=== PATIENT | female | born 1965 | race Caucasian/White ===

== ENCOUNTER → 2017-05-19 | Outpatient (CLI) | payer BC ==
--- NOTE | 2017-05-20 14:01 | MM ---
Reason for exam: screening (asymptomatic). Last mammogram was performed 1 year and 11 months ago. History: Patient is postmenopausal. Family history of premenopausal breast cancer in sister. Benign excisional biopsy of the right breast, 2003. Physical Findings: A clinical breast exam by your physician is recommended on an annual basis and results should be correlated with mammographic findings. MG Screening Mammo w CAD Bilateral CC and MLO view(s) were taken. Prior study comparison: June 25, 2015, bilateral MG screening mammo w CAD. April 11, 2009, bilateral digital screening mammogram. The breast tissue is heterogeneously dense. This may lower the sensitivity of mammography. No significant changes when compared with prior studies. ASSESSMENT: Benign, BI-RAD 2 RECOMMENDATION: Routine screening mammogram of both breasts in 1 year.
== END | disposition home or self-care (01) ==
LOC: RADMAMWWP 08:11
PROVIDERS: ATTEND Family Medicine
DX: Z12.31 Encounter for screening mammogram for malignant neoplasm of breast (principal)

== ENCOUNTER → 2020-11-06 | Outpatient (CLI) | payer BC | END | disposition home or self-care (01) | LOC: LABWHC1 09:04 | PROVIDERS: ATTEND Family Medicine | DX: Z20.822 Contact with and (suspected) exposure to COVID-19 (principal) | CPT/HCPCS: U0003; C9803; U0005 ==

== ENCOUNTER 2021-12-10 17:30 | Emergency (ER) | payer BC, OTHER ==
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
[2021-12-10 18:13] LABS: HCT 43.5 % (34.0-46.0); MCHC 32.2 g/dL (31.0-37.0); MCV 96.2 fL (80.0-100.0); Mean Platelet Volume 7.1; Platelet Count 302 k/uL (150-450); RBC 4.52 m/uL (3.80-5.40); RDW 11.9 % (11.5-15.5)
--- NOTE | 2021-12-10 18:14 | XR ---
EXAMINATION TYPE: XR pelvis AP view DATE OF EXAM: 12/10/2021 COMPARISON: NONE HISTORY: Pain TECHNIQUE: Single view FINDINGS: The pelvic ring is intact. Proximal femurs are intact. Sacroiliac joints are intact. IMPRESSION: Negative pelvis xray exam. No fracture
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
[2021-12-10 18:29] LABS: ALT 87 U/L (4-34); AST 152 U/L (14-36); African American GFR (CKD) >90 (>60 ml/min/1.73 sqM); Albumin 4.7 g/dL (3.5-5.0); Alcohol <10 mg/dL; Alkaline Phosphatase 65 U/L (38-126); Anion Gap 7 mmol/L; Blood Urea Nitrogen 26 mg/dL (7-17); Calcium 9.2 mg/dL (8.4-10.2); Carbon Dioxide 26 mmol/L (22-30); Chloride 102 mmol/L (98-107); Glucose 105 mg/dL (74-99); Non-African American GFR(CKD) >90 (>60 ml/min/1.73 sqM); Sodium 135 mmol/L (137-145); Total Bilirubin 1.4 mg/dL (0.2-1.3); Total Protein 7.4 g/dL (6.3-8.2)
[2021-12-10 18:34] LABS: INR 0.9 (<1.2)
[2021-12-10 18:36] LABS: Partial Thromboplastin Time 20.2 sec (22.0-30.0)
[2021-12-10 18:52] LABS: Band Neutrophils % 1 %; Basophils # (M) 0.21 k/uL (0-0.2); Eosinophils # (M) 0.21 k/uL (0-0.7); Lymphocytes # (M) 6.93 k/uL (1.0-4.8); Monocytes # (M) 0.84 k/uL (0-1.0); Myelocytes # (M) 0.21 k/uL (0); Myelocytes % 1 %; Neutrophils % (M) 62 %; Nucleated Red Blood Cells 0 /100 WBC (0-0); Total Cells Counted 200
[2021-12-10 18:53] LABS: RBC Morphology Normal
[2021-12-10 19:00] VITALS: BP 100/68; PULSE 60; RESP 16; TEMP 97.8
[2021-12-10] MEDS ORDERED: ETOMIDATE 2 MG/ML 10 ML VIAL IVP STA (19:09)
[2021-12-10] MEDS ORDERED: HYDROmorphone 0.5 MG/0.5 ML SYRINGE IVP STA ×2 (19:09→20:13)
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
[2021-12-10] MEDS ORDERED: cefTRIAXone IN SWFI 1,000 MG/10 ML SYRINGE IVP STA (20:01)
[2021-12-10] MEDS: cefTRIAXone IN SWFI 1,000 MG/10 ML SYRINGE IVP SCH ×2 (20:09→20:11)
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
== END 2021-12-10 20:13 | disposition other institution (70) ==
LOC: EC 17:30
DX: S93.04XA Dislocation of right ankle joint, initial encounter (principal); S12.600A Unspecified displaced fracture of seventh cervical vertebra, initial encounter for closed fracture; S22.009A Unspecified fracture of unspecified thoracic vertebra, initial encounter for closed fracture; V89.2XXA Person injured in unspecified motor-vehicle accident, traffic, initial encounter; Y92.410 Unspecified street and highway as the place of occurrence of the external cause
CPT/HCPCS: 99291; 96374; 96376; 96375; 36415; 93005; 86900; 86901; 80053; 84484; 85025; 85610; 85730; 86850; 87040; 80320; 72170; 73600; 73610; 71045; 72125; 70450; 71260; 74177; J0696; J1170; Q9967

== ENCOUNTER → 2022-04-09 | Outpatient (CLI) | payer BC ==
--- NOTE | 2022-04-09 15:54 | MM ---
Reason for Exam: Screening (asymptomatic). Last mammogram was performed 4 year(s) and 11 month(s) ago. Patient History: Menarche at age 13. First Full-Term at age 16. Postmenopausal. 2003, Benign Excisional Biopsy on the right side. Sister had breast cancer. Risk Values: Mireya 5 year model risk: 2.7%. NCI Lifetime model risk: 14.8%. Prior Study Comparison: 04/11/2009 Bilateral Screening Mammogram, [facility]. 06/25/2015 Bilateral Screening Mammogram, [facility]. 05/19/2017 Bilateral Screening Mammogram, [facility]. Tissue Density: The breast tissue is heterogeneously dense. This may lower the sensitivity of mammography. Findings: Analyzed By CAD. There is no suspicious group of microcalcifications or new suspicious mass in either breast. Chronic nodularity within the left breast. No significant change from prior exams. Overall Assessment: Benign, BI-RAD 2 Management: Screening Mammogram of both breasts in 1 year. A clinical breast exam by your physician is recommended on an annual basis and results should be correlated with mammographic findings. Electronically signed and approved by: Jeronimo Renteria D.O.
== END | disposition home or self-care (01) ==
LOC: RADMAMWWP 13:36
PROVIDERS: ATTEND Family Medicine
DX: Z12.31 Encounter for screening mammogram for malignant neoplasm of breast (principal); Z78.0 Asymptomatic menopausal state; Z80.3 Family history of malignant neoplasm of breast
CPT/HCPCS: 77067

== ENCOUNTER 2022-10-28 11:22 | Observation (INO) | payer BC, OTHER ==
[2022-10-28 12:07] LABS: Basophils % (A) 0 %; Eosinophils # (A) 0.2 k/uL (0-0.7); Eosinophils % (A) 3 %; HGB 14.7 gm/dL (11.4-16.0); Lymphocytes # (A) 2.2 k/uL (1.0-4.8); Lymphocytes % (A) 29 %; MCHC 34.2 g/dL (31.0-37.0); MCV 90.5 fL (80.0-100.0); Mean Platelet Volume 7.4; Monocytes # (A) 0.6 k/uL (0-1.0); Monocytes % (A) 8 %; Neutrophils # (A) 4.2 k/uL (1.3-7.7); Neutrophils % (A) 58 %; Platelet Count 274 k/uL (150-450); RBC 4.75 m/uL (3.80-5.40); RDW 12.8 % (11.5-15.5); WBC 7.3 k/uL (3.8-10.6)
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
--- NOTE | 2022-10-28 12:16 | XR ---
EXAMINATION TYPE: XR chest 2V DATE OF EXAM: 10/28/2022 COMPARISON: CT chest December 10, 2021 HISTORY: Chest pain. TECHNIQUE: Frontal and lateral views of the chest are obtained. FINDINGS: There is no suspicious new focal air space opacity, pleural effusion, or pneumothorax seen . The cardiac silhouette size is stable and within normal limits. Surgical change of the cervical sp ine is partially imaged . Slight scoliotic curvature again seen. Cholecystectomy clips are redemonstr ated. IMPRESSION: No acute process.
[2022-10-28 12:40] LABS: ALT 39 U/L (4-34); AST 50 U/L (14-36); African American GFR (CKD) >90 (>60 ml/min/1.73 sqM); Albumin 4.5 g/dL (3.5-5.0); Alkaline Phosphatase 85 U/L (38-126); Anion Gap 10 mmol/L; Blood Urea Nitrogen 21 mg/dL (7-17); Calcium 9.9 mg/dL (8.4-10.2); Carbon Dioxide 22 mmol/L (22-30); Chloride 106 mmol/L (98-107); Glucose 99 mg/dL (74-99); Magnesium 1.9 mg/dL (1.6-2.3); Non-African American GFR(CKD) >90 (>60 ml/min/1.73 sqM); Potassium 4.7 mmol/L (3.5-5.1); Sodium 138 mmol/L (137-145); Total Bilirubin 0.5 mg/dL (0.2-1.3); Total Protein 7.1 g/dL (6.3-8.2)
[2022-10-28 13:03] LABS: INR 0.9 (<1.2); Partial Thromboplastin Time 22.8 sec (22.0-30.0)
--- NOTE | 2022-10-28 14:36 | CT ---
EXAMINATION TYPE: CT chest angio for PE DATE OF EXAM: 10/28/2022 COMPARISON: NONE HISTORY: Chest pain, SOB CT DLP: 267.7 mGycm. Automated Exposure Control for Dose Reduction was Utilized. CONTRAST: CTA scan of the thorax is performed without and with IV Contrast, patient injected with 100 ml mL of Isovue 370, pulmonary embolism protocol. MIP Images are created on CT scanner and reviewed. FINDINGS: LUNGS: Mild left lower lobe linear scarring and/or atelectasis. Right lung is clear. No pleural effus ion or pneumothorax seen bilaterally. MEDIASTINUM: There is satisfactory enhancement of the pulmonary artery and its branches, there is no CT evidence for pulmonary embolism. Enlarged main pulmonary artery. CT finding consistent with underl nanci pulmonary artery hypertension. There are no greater than 1 cm hilar or mediastinal lymph nodes. No cardiomegaly or pericardial effusion is seen. OTHER: There is S-shaped scoliosis. Cholecystectomy clips are noted on the localizer. IMPRESSION: No CT evidence for acute pulmonary embolism. Mild left lower lobe linear scarring and/or atelectasis. No suspicious acute pulmonary process.
[2022-10-28] MEDS ORDERED: NITROGLYCERIN SL TABS 0.4 MG TAB SUBLINGUAL PRN (15:42)
[2022-10-28] MEDS ORDERED: ASPIRIN 81 MG PO STA (15:42)
[2022-10-28] MEDS ORDERED: ALPRAZolam 1 MG TAB PO PRN (18:02)
[2022-10-28] MEDS: oxyCODONE-APAP 10-325MG 1 EACH TAB PO PRN (20:31)
[2022-10-28] MEDS ORDERED: LORATADINE 10 MG TAB PO SCH (21:00)
[2022-10-28] MEDS ORDERED: ALPRAZolam 1 MG TAB PO SCH (21:00)
[2022-10-28] MEDS ORDERED: MONTELUKAST 10 MG TAB PO SCH (21:00)
[2022-10-28] MEDS ORDERED: SERTRALINE 100 MG TAB PO SCH (21:00)
[2022-10-29 08:09] VITALS: RESP 16; TEMP 98
[2022-10-29] MEDS ORDERED: ASPIRIN 325 MG TAB PO SCH (09:00)
[2022-10-29] MEDS ORDERED: ASPIRIN 81 MG PO SCH (09:00)
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
[2022-10-29] MEDS ORDERED: CAFFEINE CITRATE 60 MG/3 ML VIAL IV PRN (09:28)
[2022-10-29] MEDS ORDERED: AMINOPHYLLINE 500 MG/20 ML VIAL IV PRN (09:28)
[2022-10-29] MEDS ORDERED: REGADENOSON 0.4 MG/5 ML SYRINGE IV PRN (09:28)
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
[2022-10-29] MEDS ORDERED: ASPIRIN 325 MG TAB PO STA (09:44)
[2022-10-29] MEDS ORDERED: ALPRAZolam 0.5 MG TAB PO PRN (09:44)
[2022-10-29] MEDS ORDERED: ALPRAZolam 0.25 MG TAB PO PRN (09:44)
[2022-10-29] MEDS ORDERED: ATORVASTATIN 80 MG TAB PO STA (09:44)
[2022-10-29] MEDS ORDERED: NITROGLYCERIN SL TABS 0.4 MG TAB SUBLINGUAL PRN (09:44)
[2022-10-29] MEDS ORDERED: SODIUM CHLORIDE 0.9% 1,000 ML in EMPTY BAG 1 BAG IV SCH (09:45)
[2022-10-29] MEDS: oxyCODONE-APAP 10-325MG 1 EACH TAB PO PRN ×2 (10:19→15:57)
[2022-10-29] MEDS ORDERED: fentaNYL (PF) 50 MCG/ML 2 ML AMP ONE (12:48)
[2022-10-29] MEDS ORDERED: LIDOCAINE 1% INJ 10MG/ML (5 ML VIAL-PF) SQ ONE (12:49)
[2022-10-29] MEDS ORDERED: fentaNYL (PF) 50 MCG/ML 2 ML AMP IV ONE (12:50)
[2022-10-29] MEDS ORDERED: MIDAZOLAM 2 MG/2 ML VIAL IV ONE (12:50)
[2022-10-29] MEDS ORDERED: HEPARIN SODIUM 1,000 UN/ML (10ML VL) IV ONE (12:51)
[2022-10-29] MEDS ORDERED: SODIUM CHLORIDE 0.9% 1,000 ML IV ONE (12:51)
[2022-10-29] MEDS ORDERED: VERAPAMIL SYRINGE (5 MG/10 ML) INTRAARTER ONE (12:51)
[2022-10-29] MEDS ORDERED: IOPAMIDOL-370 125ML BTL INJ ONE (12:56)
[2022-10-29] MEDS ORDERED: RX INFO: IV CONTRAST WAS GIVEN 1 EACH MISC MISCELLANE PRN (12:57)
[2022-10-29] MEDS ORDERED: SODIUM CHLORIDE 0.9% 1,000 ML IV SCH (13:00)
--- NOTE | 2022-10-29 13:00 | P.PCN ---
Date of Procedure: 10/29/22 Operative Findings: CARDIAC CATHETERIZATION PERFORMING PHYSICIAN: Kristian Arnold MD, RPVI PROCEDURE PERFORMED: 1. Selective right and left coronary angiogram 2. Left heart catheterization 3. Ultrasound-guided access of the right radial artery INDICATION: Unstable angina COMPLICATION: None APPROACH: Right radial artery LEVEL OF SEDATION: Moderate with a sedation length of 14 minutes PROCEDURE DESCRIPTION: After obtaining an informed consent, the patient was brought to cardiac pathology laboratory director. Local anesthesia was performed using lidocaine subcutaneously. The right radial artery was cannulated using Seldinger technique, the guidewire passed easily, following that we advanced a 5-[place] sheath dilator assembly, the wire and dilator were removed and sheath was flushed. Following that, 2 mg of verapamil along with 5000 unit heparin were given. Selective right and left coronary angiogram using a 6-[place] JR4 and JL 3.5 catheters. Following that we did left heart catheterization using 6-[place] pigtail catheter. The procedure was completed there was no complication. SELECTIVE CORONARY ANGIOGRAM: The right coronary artery: Large caliber vessel and a dominant vessel. Its angiographically normal Left main: Is angiographically normal The left circumflex: Large caliber vessel nondominant vessel. Its angiographically normal. Gives rises into OM1 and OM 2 and both appeared to be angiographically normal The left anterior descending artery: Large caliber vessel. Its angiographically normal. Gives rises into the first and second diagonal branches and both appeared to be angiographically normal HEMODYNAMICS: The LVEDP was 10 mmHg was no significant gradient across aortic valve CONCLUSION: 1. Normal coronary angiogram 2., Left sided filling pressure POSTPROCEDURE MANAGEMENT: Medical treatment
[2022-10-29 17:01] VITALS: PULSE 66
[2022-10-29 17:02] VITALS: BP 127/55
[2022-10-29 20:40] LABS: Chol/HDL Ratio 3.14 Ratio; LDL Cholesterol,Calculated 123.2 mg/dL (0.0-131.0)
[2022-10-30] MEDS ORDERED: HEPARIN SODIUM,PORCINE 10,000 UNIT in SODIUM CHLORIDE 0.9% 1,000 ML IRRIGATION PRN (07:00)
[2022-10-30] MEDS ORDERED: HEPARIN SODIUM,PORCINE 2,500 UNIT in SODIUM CHLORIDE 0.9% 250 ML IRRIGATION PRN (07:00)
--- NOTE | 2022-10-30 09:46 | CA ---
Transthoracic Echo Report Name: Kelton Arciniega Age: 56 Gender: F : 1965 Exam Date: 10/29/2022 09:33 Exam Location: [facility] Ht (in): 65 Wt (lb): 150 Ordering Physician: Akshat Lauren Attending/Referring Phys: [id number], Leonidas Periodontist Tyra Younger RDCS Procedure CPT: Indications: Chest Pain Cardiac Hx: Technical Quality: Fair Contrast 1: Total Dose (mL): Contrast 2: Total Dose (mL): MEASUREMENTS (Male / Female) Normal Values 2D ECHO LV Diastolic Diameter PLAX 3.9 cm 4.2 - 5.9 / 3.9 - 5.3 cm LV Systolic Diameter PLAX 2.9 cm IVS Diastolic Thickness 1.1 cm 0.6 - 1.0 / 0.6 - 0.9 cm LVPW Diastolic Thickness 1.1 cm 0.6 - 1.0 / 0.6 - 0.9 cm LV Relative Wall Thickness 0.6 RV Internal Dim ED PLAX 2.5 cm LA Volume 27.1 cm??? 18 - 58 / 22 - 52 cm??? M-MODE Aortic Root Diameter MM 2.3 cm LA Systolic Diameter MM 2.5 cm LA Ao Ratio MM 1.1 AV Cusp Separation MM 1.6 cm DOPPLER AV Peak Velocity 164.2 cm/s AV Peak Gradient 10.8 mmHg AV Mean Velocity 112.6 cm/s AV Mean Gradient 5.6 mmHg AV Velocity Time Integral 34.3 cm LVOT Peak Velocity 109.2 cm/s LVOT Peak Gradient 4.8 mmHg LVOT Velocity Time Integral 24.5 cm MV Area PHT 3.5 cm??? Mitral E Point Velocity 94.3 cm/s Mitral A Point Velocity 74.2 cm/s Mitral E to A Ratio 1.3 MV Deceleration Time 218.6 ms MV E' Velocity 7.8 cm/s Mitral E to MV E' Ratio 12.2 FINDINGS Left Ventricle Mildly increased left ventricular wall thickness. Left ventricular cavity size normal. Normal left ventricular systolic function with no obvious regional wall motion abnormalities. Left ventricular ejection fraction is estimated at 55 %. Right Ventricle Normal right ventricular size and function. Right ventricular systolic pressure within normal limits. Right Atrium Normal right atrial size. Left Atrium Normal left atrial size. Mitral Valve Structurally normal mitral valve. Mild to moderate mitral regurgitation. Aortic Valve Trileaflet aortic valve. No aortic valve stenosis or regurgitation. Tricuspid Valve Structurally normal tricuspid valve. Trace tricuspid regurgitation. Pulmonic Valve Structurally normal pulmonic valve. Pericardium No pericardial effusion. Aorta Normal size aortic root and proximal ascending aorta. CONCLUSIONS Normal LV systolic function [id number] mitral regurgitation Previewed by: Dr. Kristian Arnold MD (Electronically Signed) Final Date: 30 October 2022 09:45
== END 2022-10-29 17:50 | disposition home or self-care (01) ==
LOC: EC 11:22 → 6NMEDSUR 15:11
PROVIDERS: ADMIT Family Medicine; ATTEND Family Medicine
DX: R07.89 Other chest pain (principal); J44.9 Chronic obstructive pulmonary disease, unspecified; R11.0 Nausea; D68.51 Activated protein C resistance; R74.01 Elevation of levels of liver transaminase levels; F32.A Depression, unspecified; F41.9 Anxiety disorder, unspecified; Z79.899 Other long term (current) drug therapy; Z86.718 Personal history of other venous thrombosis and embolism; Z90.49 Acquired absence of other specified parts of digestive tract; Z90.710 Acquired absence of both cervix and uterus; Z87.891 Personal history of nicotine dependence; Z87.81 Personal history of (healed) traumatic fracture; Z98.1 Arthrodesis status; Z98.890 Other specified postprocedural states; Z82.49 Family history of ischemic heart disease and other diseases of the circulatory system
CPT/HCPCS: 99285; 36415; 93005; 93306; 93458; 76937; 85379; 83880; 80061; 80053; 83735; 84484; 85025; 85610; 85730; 71046; 71275; G0378 ×2; C1769; C1894; J2250; J2001; J3010; J1644; Q9967 ×2

== ENCOUNTER → 2022-11-03 | Outpatient (CLI) | payer OTHER, BC ==
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
== END | disposition home or self-care (01) ==
LOC: RADMRIMAIN 08:57
PROVIDERS: ATTEND Orthopaedic Surgery Orthopaedic Trauma
DX: S82.871D Displaced pilon fracture of right tibia, subsequent encounter for closed fracture with routine healing (principal); M65.871 Other synovitis and tenosynovitis, right ankle and foot; M25.471 Effusion, right ankle; M19.171 Post-traumatic osteoarthritis, right ankle and foot; Z98.890 Other specified postprocedural states; X58.XXXD Exposure to other specified factors, subsequent encounter

== ENCOUNTER → 2023-02-26 | Outpatient (CLI) | payer OTHER ==
[2023-02-27 04:24] LABS: Gliadin AB IgA, Deaminated Negative (Negative); Gliadin AB IgA, Unit 2.9 U/mL; Gliadin AB IgG, Deaminated Negative (Negative); Gliadin AB IgG, Unit <0.4 U/mL
== END | disposition home or self-care (01) ==
LOC: LABWHC1 11:32
PROVIDERS: ATTEND Internal Medicine Gastroenterology
DX: K52.9 Noninfective gastroenteritis and colitis, unspecified (principal)
CPT/HCPCS: 36415; 83516; 85652; 86140

== ENCOUNTER 2023-05-19 08:48 | Day surgery (SDC) | payer OTHER ==
[2023-05-17 13:59] VITALS: BMI 25.0
[~2023-05-19 08:48] MED LIST: LACTATED RINGERS 1,000 ML IV SCH
[2023-05-19 09:19] VITALS: RESP 18; TEMP 96.9
[2023-05-19] MEDS ORDERED: PROPOFOL 10 MG/ML 20 ML VIAL IV ONE (09:37)
[2023-05-19] MEDS ORDERED: LIDOCAINE 1% INJ 10MG/ML (20 ML MDV) ONE (09:37)
--- NOTE | 2023-05-19 09:54 | P.PCN ---
Date of Procedure: 05/19/23 Procedure(s) Performed: BRIEF HISTORY: Patient is a 57-year-old pleasant white female scheduled for an elective colonoscopy as a part of evaluation of lower abdominal pain and diarrhea for the last 6 months duration. PROCEDURE PERFORMED: Colonoscopy with random biopsies. PREOPERATIVE DIAGNOSIS: Lower abdominal pain and chronic diarrhea. IV sedation per Anesthesia. PROCEDURE: After informed consent was obtained, the patient, was brought into the endoscopy unit. IV sedation was administered by Anesthesia under continuous monitoring. Digital rectal examination was normal. Initially the Olympus CF-160 flexible video colonoscope was then inserted in the rectum, gradually advanced into the cecum without any difficulty. Careful examination was performed as the scope was gradually being withdrawn. Ileocecal valve and the appendiceal orifice were visualized and appeared normal. Prep was excellent. Terminal ileum was intubated and 20 cm visualized and appeared normal. Mucosa of the cecum, ascending colon, appeared normal. The transverse colon there was a 3 mm sessile polyp that was removed by cold biopsy. Rest of the transverse colon, descending colon, sigmoid colon, and rectum appeared normal. Scattered sigmoid diverticulosis seen. Random biopsies were done from ascending and descending colon to rule out microscopic/collagenous colitis. Retroflexion was performed in the rectum and no lesions were seen. The patient tolerated the procedure well. IMPRESSION: 3 mm sessile transverse colon polyp status post cold biopsy Scattered sigmoid diverticulosis Rest of the colon appeared normal RECOMMENDATIONS: Findings of this examination were discussed with the patient as well as a family. She was advised to follow up with the biopsy results. If the biopsy reveals adenoma she can have a repeat colonoscopy in 5 years. Follow up in office in 2-3 weeks.
[2023-05-19 10:36] VITALS: BP 119/88; PULSE 59
== END 2023-05-19 10:48 | disposition home or self-care (01) ==
LOC: ORWHC2ENDO 08:48
PROVIDERS: ATTEND Internal Medicine Gastroenterology
DX: D12.3 Benign neoplasm of transverse colon (principal); K52.9 Noninfective gastroenteritis and colitis, unspecified; K57.30 Diverticulosis of large intestine without perforation or abscess without bleeding; J44.9 Chronic obstructive pulmonary disease, unspecified; Z88.5 Allergy status to narcotic agent; Z87.891 Personal history of nicotine dependence; Z79.899 Other long term (current) drug therapy
CPT/HCPCS: 88305; 45380; J2001; J2704